=== PATIENT | female | born 1985 | race Caucasian/White ===

== ENCOUNTER 2020-01-29 22:03 | Emergency (ER) | payer BC ==
[2020-01-29 22:18] VITALS: BMI 25.7
--- NOTE | 2020-01-29 23:57 | CONSULT ---
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 No contrac tions, no bleeding, no AF leakage. Some pressure. History of Present Illness: , high risk. First baby delivered at 30 wks after pPROM at 27, breech. Had c/section. This uneventful other than GDM, controlled with diet. On [place] since 16 wks, No BMZ. 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 History Source: Patient Limitations to Obtaining History: No Limitations - Past Medical History CLINICAL MOLECULAR GENETICIST: Denies/None Cardio/Vascular: Denies/None Pulmonary: Pneumonia Gastrointestinal: Denies/None Hepatobiliary: Denies/None Renal/: Denies/None Reproductive: Denies/None ...: 2 ...Para: 1 ...: 32 ... Weeks Gestation by Dates: 32.3 ...EDC by [facility]: 03/22/20 Heme/Onc: Denies/None Infectious Disease: Denies/None Psych: Denies/None Musculoskeletal: Denies/None Rheumatology: Denies/None ENT: Denies/None Endocrine: Other (GDM) Dermatology: Denies/None - Past Surgical History Past Surgical History: Yes: None Additional Surgical History: c/section - Smoking History Smoking history: Never smoked Have you smoked in the past 12 months: No - Alcohol/Substance Use Hx Alcohol Use: No - Social History Usual Living Arrangement: With Spouse Review of Systems - Review of Systems Constitutional: denies: No Symptoms, Chills, Diaphoresis, Fever, Lethargy, Loss of Appetite, Malaise, Night Sweats, Unintentional Wgt. Loss, Weakness, Other Eyes: denies: No Symptoms, Blind Spots, Blurred Vision, Double Vision, Eye Pain, Floaters, Photophobia, Recent Change in Vision, Other HENT: denies: No Symptoms, Difficult Swallowing, Ear Discharge, Ear Pain, Epistaxis, Gingival Bleeding, Hearing Loss, Mouth Swelling, Nasal Congestion, Ocular Prosthesis, Throat Pain, Toothache, Ringing in Ears, Other Neck: denies: No Symptoms, Decreased ROM, Lumps, Pain on Movement, Stiffness, Swollen Glands, Tenderness, Other Cardiovascular: denies: No Symptoms, Chest Pain, Edema, Palpitations, Shortness of Breath, Other Respiratory: denies: No Symptoms, Cough, Exercise Intolerance, Hemoptysis, Orthopnea, PND, Snoring, SOB, SOB on Exertion, Wheezing, Other Gastrointestinal: denies: No Symptoms, Abdominal Pain, Bloating, Constipation, Diarrhea, Dysphagia, Indigestion, Melena, Nausea, Rectal Bleeding, Vomiting, Vomiting Blood, Other Genitourinary: denies: No Symptoms, Burning, Discharge, Dysuria, Flank Pain, Frequency, Hematuria, Incontinence, Lesions, Menses, Pain, Testicular Mass, Testicular Pain, Testicular Swelling, Urgency, Vaginal Bleeding, Other Breasts: denies: No Symptoms Reported, See HPI, Breast Implants, Discharge from Nipple, Lumps, Pain, Skin Changes, Other Musculoskeletal: denies: No Symptoms, Back Pain, Crepitus, Decreased ROM, Extremity Pain, Joint Pain, Joint Swelling, Muscle Pain, Muscle Cramps, Muscle Weakness, Other Integumentary: denies: No Symptoms, Blister, Bruising, Change in Color, Eczema, Erythema, Incision, Lesions, Lump, Pallor, Pruritis, Rash, Wound, Other Neurological: denies: No Symptoms, Change in LOC, Change in Speech, Confusion, Dizziness, Headache, Incoordination, Numbness, Parasthesia, Pre-Existing Deficit, Seizure, Syncope, Tremors, Unsteady Gait, Weakness, Other Endocrine: denies: No Symptoms, Excessive Sweating, Flushing, Increased Hunger, Increased Thirst, Intolerance to Cold, Intolerance to Heat, Unexplained Weight Gain, Unexplained Weight Loss, Other Psychiatric: denies: No Symptoms, Altered Sleep Pattern, Anxiety, Depression, Hallucinations, Panic, Paranoia, Suicidal, Other Physical Exam - Maternity Vital Signs: Vital Signs Temperature Pulse Rate 100 H 01/29/20 22:14 Respiratory Rate 21 H 01/29/20 22:14 Blood Pressure 106/72 01/29/20 22:14 O2 Sat by Pulse Oximetry (%) 100 01/29/20 22:14 Constitutional: Yes: Well Nourished, No Distress, Calm Eyes: Yes: WNL, Conjunctiva Clear, EOM Intact HENT: Yes: WNL, Atraumatic, Normocephalic Neck: Yes: WNL, Supple, Trachea Midline Cardiovascular: Yes: WNL, Regular Rate and Rhythm Breast(s): Yes: WNL - Abdominal Exam/OB Fundal Height: 34 Number of Fetuses: Single Presentation: Other (unknown) Contractions: Yes Regularity: Irritability Intensity: Unaware Monitor Mode: External Heart Rate Location: RUQ Category: I Accelerations: Uniform Decelerations: None - Vaginal Exam/OB Vaginal Bleediing: No Speculum Exam: No Dilatation (cm): 0 Effacement (%): 0 Amniotic Membrane Status: Intact Station: -4 - Physical Exam Musculoskeletal: No: WNL, Back Pain, Joint Stiffness, Joint Swelling, Muscle Pain, Muscle Weakness, Other Extremities: Yes: WNL. No: Amputation, Calf Tenderness, Cold, Cool, Cyanosis, Deformity, Delayed Capillary Refill, Erythema, External Rotation, Internal Rotation, Pallor, Shortened, Other Integumentary: No: WNL, Body Piercing, Bruising, Erythema, Incision, Jaundice, Laceration, Petechiae, Pressure Ulcer, Rash, Skin Tear, Tattoos, Tenting, Onychomycosis, Venous Stasis Changes, Other ...Motor Strength: WNL, LUE, LLE, RUE, RLE Psychiatric: No: WNL, Alert, Oriented, Agitated, Suicidal Ideation, Other Problem List - Problems (1) with 32 completed weeks gestation Code(s): Z3A.32 - 32 WEEKS GESTATION OF (2) Fall Code(s): W19.XXXA - UNSPECIFIED FALL, INITIAL ENCOUNTER (3) Premature uterine contractions Code(s): O47.9 - FALSE LABOR, UNSPECIFIED Assessment/Plan Pt. fell. No injury. no abdominal trauma. Mild irregular ctx. FH reactive, cat 1. Exam WNL. Cx long, post., closed. Pres.part - unknown, high. Pt. reassured. Active hydration, rest, observation on the xt. monitor. Discharge in few hours if no changes and ctx are better. Rest at home, close f/u. All fully discussed.
[2020-01-30 00:14] VITALS: BP 112/64; PULSE 91; TEMP 97.8
[2020-01-30] MEDS ORDERED: LACTATED RINGERS SOLUTION 500 ML IV ONE ×2 (00:15→01:15)
== END 2020-01-30 00:35 | disposition home or self-care (01) ==
LOC: JER 22:03
PROC: 3E0337Z Introduction of Electrolytic and Water Balance Substance into Peripheral Vein, Percutaneous Approach (ICD-10-PCS; principal; 2020-01-29)
DX: O47.9 False labor, unspecified (principal); Z3A.32 32 weeks gestation of pregnancy; W07.XXXA Fall from chair, initial encounter; Y93.89 Activity, other specified; Y92.89 Other specified places as the place of occurrence of the external cause
CPT/HCPCS: 99282-25

== ENCOUNTER 2020-12-25 22:12 | Emergency (ER) | payer BC ==
[2020-12-25 22:22] VITALS: BP 103/65; PULSE 84; TEMP 98.3; BMI 23.1
== END 2020-12-26 00:34 | disposition home or self-care (01) ==
LOC: JER 22:12
DX: S10.93XA Contusion of unspecified part of neck, initial encounter (principal)
CPT/HCPCS: 72125-TC; 99284-25

== ENCOUNTER 2021-08-01 22:33 | Emergency (ER) | payer BC ==
[2021-08-01 22:52] VITALS: BP 112/73; PULSE 88; TEMP 98.1; BMI 21.9
== END 2021-08-02 00:24 | disposition home or self-care (01) ==
LOC: JER 22:33
DX: R51.9 Headache, unspecified (principal)
CPT/HCPCS: 70486-TC; 99284-25